=== PATIENT | male | born 1975 | race Caucasian/White ===

== ENCOUNTER 2017-08-24 15:21 | Emergency (ER) | payer SELFPAY ==
--- NOTE | 2017-08-24 16:15 | ER Document Report ---
ED General - General Mode of Arrival: Ambulatory Information source: Patient <TANA BARRETT - Last Filed: 08/24/17 22:24> <PILLO AKERS - Last Filed: 08/24/17 22:25> - General Chief Complaint: Probable Seizure Stated Complaint: POSSIBLE SEIZURES Time Seen by Provider: 08/24/17 15:31 Notes: Patient is a 42 year old male with no previous history of seizures presents to the emergency department complaining of seizures prior to arrival to the emergency department. at bedside states the patient was standing up walking towards his door at their home when he fell, began to have a fixed look , shake and have contractions of the right arm. She states this lasted approximately a little over 1 minute. She states the then attempted to stand up when he fell again and proceeded to have another seizure lasting approximately 30 seconds. states after the seizures the appeared a little confused. Husbands states he does not remember having a seizure but does remember waking up, further stating he did not feel confused at that time. Patient at bedside states he feels fine. Patient admits to drinking alcohol everyday, last drink last night, but denies ever having had withdrawal symptoms from not drinking alcohol. He also denies any pain, weakness or taking Ultram. (ARNOLDTANA GARCIA) - Related Data Allergies/Adverse Reactions: No Known Allergies Allergy (Unverified 08/24/17 16:56) Past Medical History - General Information source: Patient - Social History Smoking Status: Current Every Day Smoker Chew tobacco use (# tins/day): No Frequency of alcohol use: Heavy Drug Abuse: None Family History: Reviewed & Not Pertinent Patient has suicidal ideation: No Patient has homicidal ideation: No Pulmonary Medical History: Reports: Hx COPD - recent diagnosis in October 2016 <ARNOLDMIQUELHUGO - Last Filed: 08/24/17 22:24> Review of Systems - Review of Systems Constitutional: No symptoms reported EENT: No symptoms reported Cardiovascular: No symptoms reported Respiratory: No symptoms reported Gastrointestinal: No symptoms reported Genitourinary: No symptoms reported Male Genitourinary: No symptoms reported Musculoskeletal: No symptoms reported Skin: No symptoms reported Hematologic/Lymphatic: No symptoms reported Neurological/Psychological: See HPI, Seizure - x2 -: Yes All other systems reviewed and negative <TANA BARRETT - Last Filed: 08/24/17 22:24> Physical Exam <ARNOLDMIQUELHUGO - Last Filed: 08/24/17 22:24> <PILLO AKERS - Last Filed: 08/24/17 22:25> - Vital signs Vitals: Resp BP Pulse Ox 19 117/77 100 08/24/17 15:31 08/24/17 15:31 08/24/17 15:31 - Notes Notes: GENERAL: Alert, interacts well. No acute distress. HEAD: Normocephalic, atraumatic. EYES: Pupils equal, round, and reactive to light. Extraocular movements intact. ENT: Oral mucosa moist, tongue midline. NECK: Full range of motion. Supple. Trachea midline. LUNGS: Clear to auscultation bilaterally, no wheezes, rales, or rhonchi. No respiratory distress. HEART: Regular rate and rhythm. No murmurs, gallops, or rubs. ABDOMEN: Soft, non-tender. Non-distended. Bowel sounds present in all 4 quadrants. EXTREMITIES: Moves all 4 extremities spontaneously. No edema, radial and dorsalis pedis pulses 2/4 bilaterally. No cyanosis. NEUROLOGICAL: Alert and oriented x3. Normal speech. cranial nerves II through XII grossly intact. Biceps and patellar DTRs 2+ bilaterally. Finger to nose and heel to mims intact. PSYCH: Normal affect, normal mood. SKIN: Warm, dry, normal turgor. No rashes or lesions noted. (ARNOLDTANA) Course - Laboratory Result Diagrams: 08/24/17 15:37 08/24/17 16:20 <TANA BARRETT - Last Filed: 08/24/17 22:24> - Laboratory Result Diagrams: 08/24/17 15:37 08/24/17 16:20 <PILLO AKERS - Last Filed: 08/24/17 22:25> - Re-evaluation Re-evalutation: 08/24/17 18:43 CBC unremarkable, EKG unremarkable, CMP unremarkable, cardiac enzymes negative, urinalysis unremarkable, urine drug screen only shows marijuana, no alcohol. CT scan of the head is negative for any acute process, it does show someAsymmetry which they think is developmental. Patient has had no further seizures here, is neurologically intact, no indication for admission or antiepileptics at this time. Patient will be discharged to home, encouraged to follow-up with neurology as an outpatient. Warned not to drive until he is been cleared by neurology or it has been at least a year since his last seizure. (PILLO AKERS) - Vital Signs Vital signs: Temp Pulse Resp BP Pulse Ox 98.3 F 76 14 105/60 99 08/24/17 15:40 08/24/17 15:40 08/24/17 18:01 08/24/17 18:01 08/24/17 18:01 - Laboratory Laboratory results interpreted by me: 08/24/17 08/24/17 08/24/17 15:37 16:20 16:45 RBC 4.21 L Creatine Kinase 53 L Urine Urobilinogen 2.0 H Discharge <TANA BARRETT - Last Filed: 08/24/17 22:24> <PILLO AKERS - Last Filed: 08/24/17 22:25> - Discharge Clinical Impression: Seizure Condition: Stable Disposition: HOME, SELF-CARE Additional Instructions: You had a seizure. I do not know why he had a seizure. There is no sign of bleeding or brain tumor on your CAT scan. Your blood work is normal. Please follow-up as an outpatient with your primary care physician and a neurologist. I know you are not from this area so we have printed copies of all of your lab work as well as your CAT scan. You may not drive until has been at least a year since you had a seizure and your neurologist clears you. Do not use any recreational drugs, do not use any herbal supplements and do not drink alcohol. All of these will increase your risk of seizure. Raúl Attestation: 08/24/17 22:25 I personally performed the services described in the documentation, reviewed and edited the documentation which was dictated to the scribe in my presence, and it accurately records my words and actions. (PILLO AKERS) [employer] Documentation - Scribe Written by Raúl:: Raúl Del Castillo, 08/24/2017 16:32 acting as scribe for :: Dorota <TANA BARRETT - Last Filed: 08/24/17 22:24>
--- NOTE | 2017-08-24 16:16 | RADIOLOGY REPORT (SQ) ---
EXAM DESCRIPTION: CT HEAD WITHOUT COMPLETED DATE/TIME: 08/24/2017 3:59 pm REASON FOR STUDY: new onset focal seizure COMPARISON: None. TECHNIQUE: Axial images acquired through the brain without intravenous contrast. Images reviewed wi th bone, brain and subdural windows. Additional sagittal and coronal reconstructions were generated. Images stored on PACS. All CT scanners at this facility use dose modulation, iterative reconstruction, and/or weight based d osing when appropriate to reduce radiation dose to as low as reasonably achievable (ALARA). [facility]: Dose Right [facility]: CareDose [facility]: Dose Right [facility]: Teradose 4D [facility]: Pili Pop RADIATION DOSE: CT Rad equipment meets quality standard of care and radiation dose reduction techniq ues were employed. CTDIvol: 53.2 mGy. DLP: 1044 mGy-cm. mGy. LIMITATIONS: None. FINDINGS: VENTRICLES: There is some mild asymmetry in the lateral ventricles which is felt to be an anatomic variant. CEREBRUM: No masses. No hemorrhage. No midline shift. No evidence for acute infarction. Normal gra y/white matter differentiation. No areas of low density in the white matter. CEREBELLUM: No masses. No hemorrhage. No alteration of density. No evidence for acute infarction. EXTRAAXIAL SPACES: No fluid collections. No masses. ORBITS AND GLOBE: No intra- or extraconal masses. Normal contour of globe without masses. CALVARIUM: No fracture. PARANASAL SINUSES: There is opacification of multiple ethmoidal air cells bilaterally. There is muco ike thickening in the maxillary antra and frontal sinuses. SOFT TISSUES: No mass or hematoma. OTHER: No other significant finding. IMPRESSION: No significant intracranial abnormalities were identified. Sinus disease as noted above . Other findings as noted above EVIDENCE OF ACUTE STROKE: NO. COMMENT: Quality ID # [id number]: Final reports with documentation of one or more dose reduction techniques (e.g., Automated exposure control, adjustment of the mA and/or kV according to patient size, use of iterative reconstruction technique) TECHNICAL DOCUMENTATION: JOB ID: [id number] [employer]- All Rights Reserved Reading location - IP/workstation name: [email or web address]
[2017-08-24 16:34] LABS: VENOUS BLOOD HCO3 28.4 mmol/L (20-32); VENOUS BLOOD PH 7.36 (7.30-7.42)
[2017-08-24 16:53] LABS: ALANINE AMINOTRANSFERASE 21 U/L (21-72); ALBUMIN 3.8 g/dL (3.5-5.0); ALKALINE PHOSPHATASE 55 U/L (38-126); ANION GAP 7 (5-19); ASPARTATE AMINO TRANSFERASE 20 U/L (17-59); BILIRUBIN,DIRECT 0.2 mg/dL (0.0-0.4); BILIRUBIN,TOTAL 0.5 mg/dL (0.2-1.3); BLOOD UREA NITROGEN 7 mg/dL (7-20); CARBON DIOXIDE 29 mmol/L (22-30); CHLORIDE 104 mmol/L (98-107); CREATINE KINASE 53 U/L (55-170); GLUCOSE 96 mg/dL (75-110); POTASSIUM 4.2 mmol/L (3.6-5.0); SODIUM 140.3 mmol/L (137-145); TOTAL PROTEIN 6.5 g/dL (6.3-8.2)
[2017-08-24 16:54] LABS: ALCOHOL < 10 mg/dL (NONE DETECTED)
[2017-08-24 16:59] LABS: ABSOLUTE EOSINOPHILS # (AUTO) 0.2 10^3/uL (0.0-0.6); ABSOLUTE LYMPHOCYTES (AUTO) 1.9 10^3/uL (0.5-4.7); ABSOLUTE MONOCYTES (AUTO) 0.5 10^3/uL (0.1-1.4); ABSOLUTE NEUT (AUTO) 3.3 10^3/uL (1.7-8.2); BASOPHILS % (AUTO) 0.6 % (0-2); EOSINOPHILS % (AUTO) 3.6 % (0-6); HEMATOCRIT 40.3 % (37.9-51.0); LYMPHOCYTES % (AUTO) 32.2 % (13-45); MEAN CORPUSCULAR HEMOGLOBIN 33.2 pg (27.0-33.4); MEAN CORPUSCULAR HGB CONC 34.6 g/dL (32.0-36.0); MEAN CORPUSCULAR VOLUME 96 fl (80-97); MONOCYTES % (AUTO) 8.2 % (3-13); PLATELET COUNT 297 10^3/uL (150-450); RED BLOOD COUNT 4.21 10^6/uL (4.35-5.55); RED CELL DISTRIBUTION WIDTH 13.1 % (11.5-14.0); SEGMENTED NEUTROPHILS % (AUTO) 55.4 % (42-78); TOTAL CELLS COUNTED % (AUTO) 100 %
[2017-08-24 17:12] LABS: APPEARANCE,URINE SLIGHTLY-CLOUDY; BILIRUBIN,URINE NEGATIVE (NEGATIVE); COLOR,URINE YELLOW; GLUCOSE, URINE NEGATIVE (NEGATIVE); KETONES,URINE NEGATIVE (NEGATIVE); LEUKOCYTE ESTERASE,URINE NEGATIVE (NEGATIVE); NITRITE,URINE NEGATIVE (NEGATIVE); PROTEIN,URINE NEGATIVE (NEGATIVE); URINE SPECIFIC GRAVITY 1.019
[2017-08-24 17:20] LABS: URINE AMPHETAMINES SCREEN NEGATIVE; URINE BARBITURATES SCREEN NEGATIVE; URINE BENZODIAZEPINES SCREEN NEGATIVE; URINE COCAINE SCREEN NEGATIVE; URINE MARIJUANA (THC) SCREEN UNCONFIRMED POSITIVE; URINE METHADONE SCREEN NEGATIVE; URINE PHENCYCLIDINE SCREEN NEGATIVE
[2017-08-24 18:56] VITALS: BP 105/60
== END 2017-08-24 19:06 | disposition home or self-care (01) ==
LOC: ER 15:21
DX: R56.9 Unspecified convulsions (principal); W18.30XA Fall on same level, unspecified, initial encounter; Y92.009 Unspecified place in unspecified non-institutional (private) residence as the place of occurrence of the external cause; J44.9 Chronic obstructive pulmonary disease, unspecified
CPT/HCPCS: 36415; 70450; 80053; 80307; 81001; 82550; 82553; 82803; 85025; 99285